=== PATIENT | female | born 1960 | race Caucasian/White ===

== ENCOUNTER → 2017-08-23 | Outpatient (CLI) | payer OTHER ==
[~2017-08-23] MED LIST: ALBU90OI6 INH; BISA10S PR; CETI5 PO; DOCU100 PO; Excedrin Extra1 EACH; FERROUS SULFAT140 MG; FLUO10; HORIZANT300 MG PO; HYDCHL25; HYDCHL25 PO; IRON325 MG PO; LISI5 PO; LORA1 PO; MAGOXI400; Milk Of Ma400 MG/5 M PO; OMEP20ER PO; ONDA4ODT MM; PANT40 PO; Prilosec Otc20 MG PO; SUCR1 PO; TRAZ100 PO; TRAZ50 PO; Therapeutic M1 EAC5 PO; Toprol Xl50 MG PO; ZESTORETIC 20-251 EA PO
== END ==
LOC: LAB 07:05 → PLD 07:05 → LAB SHORT 07:05
DX: R21 Rash and other nonspecific skin eruption (principal)
CPT/HCPCS: 88312

== ENCOUNTER 2017-08-28 07:46 | Day surgery (SDC) | payer OTHER ==
[~2017-08-28] VITALS: Ht 160 cm; Wt 69.0 kg
[~2017-08-28 07:46] MED LIST changes: -Excedrin Extra1 EACH; -FERROUS SULFAT140 MG; -FLUO10; -HYDCHL25
[2017-08-28] MEDS ORDERED: HYDCHL25 (08:22)
[2017-08-28] MEDS ORDERED: FLUO10 (08:22)
[2017-08-28] MEDS ORDERED: Excedrin Extra1 EACH (08:23)
[2017-08-28] MEDS ORDERED: FERROUS SULFAT140 MG (08:24)
== END 2017-08-28 09:40 | disposition home or self-care (01) ==
LOC: ORSCSDS 07:46
PROVIDERS: Internal Medicine Gastroenterology
PROC: 0DJ08ZZ Inspection of Upper Intestinal Tract, Via Natural or Artificial Opening Endoscopic (ICD-10-PCS; principal; 2017-08-28 09:00)
DX: K70.30 Alcoholic cirrhosis of liver without ascites (principal); I85.00 Esophageal varices without bleeding; K31.819 Angiodysplasia of stomach and duodenum without bleeding; D50.9 Iron deficiency anemia, unspecified; D64.9 Anemia, unspecified; J32.0 Chronic maxillary sinusitis; Z79.899 Other long term (current) drug therapy
CPT/HCPCS: 87081; J0330; J1980; J2405; J7120

== ENCOUNTER → 2018-05-26 | Outpatient (CLI) | payer OTHER ==
[~2018-05-26] MED LIST changes: +Excedrin Extra1 EACH; +FERROUS SULFAT140 MG; +FLUO10; +HYDCHL25
== END ==
LOC: LAB SHORT 15:20 → LAB EV 15:20 → LAB 15:20
DX: R50.9 Fever, unspecified (principal)
CPT/HCPCS: 87070

== ENCOUNTER 2019-11-20 09:21 | Day surgery (SDC) | payer BC ==
[~2019-11-20 09:21] MED LIST changes: +ALBU90OI; +BUPR100 PO; +NASACORT10.8 ML INH
== END 2019-11-20 11:29 | disposition home or self-care (01) ==
LOC: ORSCSDS 09:21
PROVIDERS: Internal Medicine Gastroenterology
PROC: 0DJ08ZZ Inspection of Upper Intestinal Tract, Via Natural or Artificial Opening Endoscopic (ICD-10-PCS; principal; 2019-11-20 10:30)
DX: K74.69 Other cirrhosis of liver (principal); K31.819 Angiodysplasia of stomach and duodenum without bleeding; I85.00 Esophageal varices without bleeding; D37.2 Neoplasm of uncertain behavior of small intestine; I10 Essential (primary) hypertension; Z79.899 Other long term (current) drug therapy
CPT/HCPCS: J2704; J7120

== ENCOUNTER 2022-03-02 07:48 | Day surgery (SDC) | payer BC ==
[~2022-03-02] VITALS: Ht 160 cm; Wt 68.4 kg
[2022-03-02] MEDS ORDERED: ROPI.25 (08:10)
== END 2022-03-02 10:05 | disposition home or self-care (01) ==
LOC: ORSCSDS 07:48
PROVIDERS: Internal Medicine Gastroenterology
PROC: 0D578ZZ Destruction of Stomach, Pylorus, Via Natural or Artificial Opening Endoscopic (ICD-10-PCS; principal; 2022-03-02 09:00)
PROC: 0DBN8ZX Excision of Sigmoid Colon, Via Natural or Artificial Opening Endoscopic, Diagnostic (ICD-10-PCS; principal; 2022-03-02 09:00)
DX: Z12.11 Encounter for screening for malignant neoplasm of colon (principal); Z86.010 Personal history of colon polyps; K74.60 Unspecified cirrhosis of liver; D12.5 Benign neoplasm of sigmoid colon; K31.819 Angiodysplasia of stomach and duodenum without bleeding; K57.30 Diverticulosis of large intestine without perforation or abscess without bleeding; K44.9 Diaphragmatic hernia without obstruction or gangrene; I10 Essential (primary) hypertension; J45.909 Unspecified asthma, uncomplicated; Z79.899 Other long term (current) drug therapy
CPT/HCPCS: 88305; J2704; J7120

== ENCOUNTER → 2022-11-15 | Outpatient (CLI) | payer OTHER ==
[~2022-11-15] MED LIST changes: +ROPI.25
[2022-11-15 17:41] LABS: Source, Urine Clean Catch
[2022-11-15 19:11] LABS: Bacteria Rare /hpf; Squamous Epithelial Cells Few /hpf (Few); White Blood Cells, Urine 0-2 /hpf (0-5)
== END | disposition home or self-care (01) ==
LOC: LAB 15:30 → LAB SHORT 15:30
PROVIDERS: Family Medicine
DX: R82.998 Other abnormal findings in urine (principal)
CPT/HCPCS: 81015; 87086

== ENCOUNTER 2024-03-25 10:44 | Day surgery (SDC) | payer BC ==
[~2024-03-25] VITALS: Ht 160 cm; Wt 75.4 kg
[~2024-03-25 10:44] MED LIST changes: +BUPR150ER PO; +LOSA25 PO; +METO25 PO
[2024-03-25] MEDS ORDERED: Lactated Ringer's 1,000 ML IV ONE ×2 (11:52→12:07)
[2024-03-25] MEDS ORDERED: propofoL 50 ML IV ONE (12:07)
[2024-03-25 13:01] VITALS: BP 121/70
== END 2024-03-25 13:00 | disposition home or self-care (01) ==
LOC: ORSCSDS 10:44
PROVIDERS: Specialist
PROC: 0DJ08ZZ Inspection of Upper Intestinal Tract, Via Natural or Artificial Opening Endoscopic (ICD-10-PCS; principal; 2024-03-25 12:15)
DX: K74.60 Unspecified cirrhosis of liver (principal); K31.819 Angiodysplasia of stomach and duodenum without bleeding; I10 Essential (primary) hypertension; G47.9 Sleep disorder, unspecified; Z79.899 Other long term (current) drug therapy
CPT/HCPCS: J2704; J7120

== ENCOUNTER → 2024-11-09 | Outpatient (CLI) | payer OTHER ==
[2024-11-09 13:04] LABS: BASOPHILS ABSOLUTE AUTO 0.06 K/mm3 (0.00-0.23); BASOPHILS PERCENT AUTO 1 % (0-2); EOSINOPHILS ABSOLUTE AUTO 0.14 K/mm3 (0.00-0.68); EOSINOPHILS PERCENT AUTO 2 % (0-6); Hematocrit 48.9 % (33.0-51.0); Hemoglobin 16.6 g/dL (11.5-16.0); IMMATURE GRAN ABSOLUTE AUTO 0.02 K/mm3 (0.00-0.10); IMMATURE GRAN PERCENT AUTO 0 % (0-1); LYMPHOCYTES ABSOLUTE AUTO 2.35 K/mm3 (0.84-5.20); LYMPHOCYTES PERCENT AUTO 36 % (21-46); MONOCYTES ABSOLUTE AUTO 0.63 K/mm3 (0.16-1.47); MONOCYTES PERCENT AUTO 10 % (4-13); Mean Corpuscular HGB Conc 33.9 g/dL (31.5-36.5); Mean Corpuscular Volume 89 fL (80-100); NEUTROPHILS ABSOLUTE AUTO 3.27 K/mm3 (1.96-9.15); NEUTROPHILS PERCENT AUTO 51 % (41-73); NRBC ABSOLUTE 0.00 K/mm3 (0.00-0.02); NRBC Auto 0.0 /100 WBC (0.0-0.2); Platelet Count 261 K/mm3 (150-400); RDW Coefficient Variation 12.8 % (11.7-14.2); RDW Standard Deviation 41.7 fL (35.1-46.3)
[2024-11-09 13:17] LABS: Alanine Aminotransfer (ALT/SGP 62.0 U/L (12-78); Albumin, Blood 4.6 g/dL (3.4-5.0); Albumin/Globulin Ratio 1.2 (0.8-1.8); Anion Gap 17.0 mmol/L (3-11); Aspartate Aminotrans (AST/SGOT 37.0 U/L (12-37); Bilirubin, Total 1.0 mg/dL (0.1-1.0); Blood Urea Nitrogen 17.0 mg/dL (8-24); CO2, Blood 23.0 mmol/L (21-32); Calcium, Blood 9.8 mg/dL (8.5-10.1); Chloride, Blood 101.0 mmol/L (98-108); Creatinine, Blood 0.93 mg/dL (0.40-1.00); Globulin, Blood 3.8 g/dL (2.2-4.0); Glucose, Blood 104.0 mg/dL (70-99); Potassium, Blood 3.3 mmol/L (3.5-5.5); Sodium, Blood 138.0 mmol/L (136-145); Total Protein, Blood 8.4 g/dL (6.4-8.2)
== END ==
LOC: LAB 13:00 → LAB SHORT 13:00
PROVIDERS: Emergency Medicine
DX: R07.1 Chest pain on breathing (principal); R11.10 Vomiting, unspecified; R82.998 Other abnormal findings in urine
CPT/HCPCS: 80053; 83690; 84484; 85025; 87086; 87147